=== PATIENT | male | born 1940 | race Caucasian/White ===

== ENCOUNTER 2025-05-15 06:41 | Day surgery (SDC) | payer MEDICARE, OTHER ==
[~2025-05-15] VITALS: Ht 182.9 cm; Wt 94.3 kg
[2025-05-15] VITALS (11 sets, daily range): BP systolic 122–145; BP diastolic 52–77; PULSE 63–78; RESP 14–20; TEMP 98.1; O2SAT 95–96
[2025-05-15] MEDS ORDERED: GLIP5TAB23 PO (07:21)
[2025-05-15] MEDS ORDERED: NITR0.4T48 (07:21)
[2025-05-15] MEDS ORDERED: METO50TA16 PO (07:21)
[2025-05-15] MEDS ORDERED: EZET10TA48 PO (07:21)
[2025-05-15] MEDS ORDERED: CITA-178 PO (07:21)
[2025-05-15] MEDS ORDERED: CLOP75TA34 PO (07:21)
[2025-05-15] MEDS ORDERED: ATOR-2 PO (07:22)
[2025-05-15] MEDS ORDERED: OMEP20CA16 PO (07:22)
[2025-05-15] MEDS ORDERED: TAMSULOSIN (07:22)
[2025-05-15] MEDS ORDERED: INSU100I31 SQ (07:23)
[2025-05-15] MEDS ORDERED: EMPA25TA PO (07:23)
[2025-05-15] MEDS ORDERED: TEST200V33 IM (07:24)
[2025-05-15] MEDS ORDERED: b12 injection (07:26)
[2025-05-15] MEDS ORDERED: VIT1CAPS9 PO (07:27)
[2025-05-15] MEDS ORDERED: CHOL500044 PO (07:28)
[2025-05-15] MEDS ORDERED: OMEG1CAP46 PO (07:28)
[2025-05-15 07:39] LABS: MEAN PLATELET VOLUME 7.7 FL (7.4-10.4); RED CELL DISTRIBUTION WIDTH 16.0 % (11.5-14.5)
[2025-05-15 07:46] LABS: CREATININE 1.42 MG/DL (0.60-1.10); TOTAL CARBON DIOXIDE 30.7 MMOL/L (24-32); eCRCL 43 ML/MIN; eGFR 47 ML/MIN
[2025-05-15 07:49] LABS: INR 1.1 INR
[2025-05-15] MEDS: sodium bicarbonate 1meq/ml syr 150 ML in dextrose 5%-water 1,000 ML IV ONE (08:15)
[2025-05-15] MEDS ORDERED: verapamil 2.5 mg/ml inj IV ONE (08:50)
[2025-05-15] MEDS ORDERED: LIDOcaine 1% (10mg/ml) 2ml vial ONE (08:50)
[2025-05-15] MEDS ORDERED: heparin 1,000unit/ml 10ml vial 10 ML ONE (08:51)
[2025-05-15] MEDS ORDERED: midazolam 1 mg/ML 2ml injection ONE ×2 (08:51→09:58)
[2025-05-15] MEDS ORDERED: fentaNYL/PF 50MCG/1 ML 2ML syringe ONE (08:51)
[2025-05-15] MEDS ORDERED: iohexol 350 MG/ML 50ML vial IV ONE (08:51)
[2025-05-15] MEDS ORDERED: nitroGLYCERIN 500mcg/5mL D5W 5 ML IV ONE (08:54)
--- NOTE | 2025-05-15 10:55 | ELECTROCARDIOGRAPH REPORT ---
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 GRAEME Garcia Measurements Intervals [place] Rate: 68 P: 42 SD: 210 QRS: -44 QRSD: 118 T: 27 QT: 386 QTc: 411 Interpretive Statements Sinus rhythm Incomplete left bundle branch block Inferior infarct, old Borderline ST elevation, anterior leads Electronically Signed On 05-16-2025 13:05:[address] GRAEME Garcia Please click the below link to view image of tracing.
[2025-05-15] MEDS ORDERED: clopidogrel 300mg tablet ONE (11:10)
[2025-05-15] MEDS ORDERED: protamine sulfate 10mg/ml inj. ONE (11:17)
--- NOTE | 2025-05-15 12:36 | CARDIOLOGY REPORT ---
DATE OF SERVICE: 05/15/2025 DICTATING PHYSICIAN: ARIANA SANON DO CARDIAC CATHETERIZATION REPORT REFERRING PHYSICIAN: Carlitos Ventura MD. CLINICAL HISTORY: This 85-year-old man has had occasional chest pains in the recent past. He has an extensive medical history that includes at least moderate aortic stenosis, hypertension, hypercholesterolemia, diabetes, and there is a prior history of renal artery stenting. PROCEDURES PERFORMED: Right heart catheterization, left heart catheterization, left ventriculography, selective coronary arteriography, Instantaneous wave free ratio (IFR), PTCA/stent placement (mid LAD), 90 minutes conscious sedation supervision. DESCRIPTION OF PROCEDURE: The patient was sedated with fentanyl. He was then prepared and draped in the usual manner. The area surrounding the right radial artery was infiltrated with 1% lidocaine using a micropuncture set and a Seldinger technique. A 6-Stateless sheath was placed in the radial artery. 200 mcg of nitroglycerin and 2.5 mg of verapamil were directly injected into the radial artery. I pre-placed 18-gauge Angiocath in the right cephalic arm vein was then used to place a 6-Stateless sheath. 5,000 units of heparin were then given. Right heart catheterization was performed using a 6-Stateless [place] Kiersten catheter. Cardiac output was determined by thermal dilution technique. Left heart catheterization and left ventriculography were performed with a double lumen Garrochales catheter. Simultaneous pressure recordings were obtained in the left ventricle and aorta for purposes of assessing the aortic valve. Coronary arteriography was performed using a 6-Stateless Kimney catheter. PTCA/STENT PLACEMENT: The patient was given an additional 5,000 units of heparin. The right coronary was engaged with a 6-Stateless side-hold XB-RCA guidingcatheter. After appropriate preparation and equalization, a pressure wire was passed across a moderate lesion in the mid right coronary. The IFR ratio was 0.89. Although the ratio was equivocal, a decision was made to proceed to stenting because of recent chest pains.Using the retained pressure wire, a 3.5 x 15 mm Xience drug-eluting stent was positioned across the stenosis and deployed at a maximum of 18 atmospheres. After test injections demonstrated stability of the treated area, final arteriography was performed. The arterial sheath was removed and a Vasc band was applied. Direct pressure was applied to the cubital cephalic vein. RESULTS: The mean right atrial pressure was 8 mmHg. Pulmonary arterial pressure was 33/11 mmHg. Mean pulmonary capillary wedge pressure was 11 mmHg. Left ventricular end-diastolic pressure was 14 mmHg. There was a 39 mmHg peak gradient across the aortic valve. Cardiac output by thermal dilution technique was 6.53 L/min. Using the short-form calculation, the aortic valve area was determined to be 1.04 cm2. LEFT VENTRICULOGRAM: The left ventriculogram was technically satisfactory. The ejection fraction was estimated to be about 60%. CORONARY ARTERIOGRAPHY: The coronary arteriograms were technically satisfactory. The patient had a right dominant system. RIGHT CORONARY ARTERY: The right coronary artery was a large main stem vessel. There was a large caliber moderately long posterior descending branch and one small posterolateral branch. Just after the takeoff of the first major acute marginal branch, the right coronary appeared to be narrowed by about 60-70%. There was also a similar 60-70% on the distal end of the posterior descending branch, but it was in an area small enough that stenting did not look to be a good choice since the vessel size in this location was estimated to be no greater than 2 mm. in diameter. LEFT MAIN CORONARY ARTERY: The left main was a large unobstructed vessel trifurcating the left anterior descending intermediate and circumflex coronary arteries. LEFT ANTERIOR DESCENDING CORONARY ARTERY: The LAD was a large transapical vessel. There was a very large proximal diagonal branch that contained an approximately 40% area of narrowing in the proximal half of the vessel. The main stem LAD contained no obstructive disease. INTERMEDIATE ARTERY: The intermediate artery (which actually took its origin from the very proximalmost LCX) was a medium-sized unobstructed vessel. CIRCUMFLEX CORONARY ARTERY: The circumflex was a large main stem vessel. There was a small first obtuse marginal, a small inferior obtuse marginal and a bifurcated small to medium-sized posterolateral branch. The second obtuse marginal contained luminal irregularities, but given the very small size of the vessel, it was not deemed to be important nor big enough for consideration of PCI. PTCA/STENT PLACEMENT: Following IFR evaluation, the ratio was 0.89 and following direct stenting of the mid vessel, there was no significant residual stenosis and brisk runoff distally. CONCLUSIONS: * Atherosclerotic coronary artery disease, principally manifested as a 60-70% mid right coronary with an IFR ratio of 0.89. There was also a 60-70% narrowing in the small distal end of the posterior descending branch. There was about a 40-50% narrowing in a large LAD diagonal with no other lesions of any significant size noted. * Successful direct stenting of the mid right coronary. * Severe aortic stenosis with a calculated valve area of 1.04 cm2. There was a 39 mmHg peak gradient across the valve. Cardiac output was 6.53 liters per minute. * Left ventricular function appears to be good. The estimated ejection fraction was 60%. RECOMMENDATIONS: Consideration of TAVR. ARIANA SANON DO TID: [id number] RECEIPT: [id number] LOYDA/DANILO MTDD
[2025-05-15] MEDS ORDERED: ASPI-1265 PO (13:54)
== END 2025-05-15 15:05 | disposition home or self-care (01) ==
LOC: SSTAY O 06:41
PROVIDERS: ATTEND Internal Medicine Cardiovascular Disease
DX: I25.10 Atherosclerotic heart disease of native coronary artery without angina pectoris (principal); I44.7 Left bundle-branch block, unspecified; I25.2 Old myocardial infarction; I25.84 Coronary atherosclerosis due to calcified coronary lesion; I35.0 Nonrheumatic aortic (valve) stenosis; I10 Essential (primary) hypertension; E78.5 Hyperlipidemia, unspecified; E11.9 Type 2 diabetes mellitus without complications; G47.30 Sleep apnea, unspecified; Z86.73 Personal history of transient ischemic attack (TIA), and cerebral infarction without residual deficits
CPT/HCPCS: 36415; 80048; 82948; 83735; 85025; 85610; 93005; 93460; 93571; 99152; 99153; A6258; A6402; C1751; C1769; C1874; C1887; C1894; C9600; J1644; J2003; J2250; J2720; J3010; J3490; J7030; J7070; Q0163; Q9967; Z7610; 93572

== ENCOUNTER 2025-06-23 08:47 | Outpatient (CLI) | payer MEDICARE, OTHER ==
[~2025-06-23 08:47] MED LIST: ASPI-1265 PO; ATOR-2 PO; CHOL500044 PO; CITA-178 PO; CLOP75TA34 PO; EMPA25TA PO; EZET10TA48 PO; GLIP5TAB23 PO; INSU100I31 SQ; IODIXANOL 320 MG/ML INFUS..BTL 100ML IV ONE; METO50TA16 PO; NITR0.4T48; OMEG1CAP46 PO; OMEP20CA16 PO; TAMSULOSIN; TEST200V33 IM; VIT1CAPS9 PO; b12 injection
[2025-06-23 09:19] LABS: MEAN PLATELET VOLUME 7.4 FL (7.4-10.4); RED CELL DISTRIBUTION WIDTH 15.9 % (11.5-14.5)
[2025-06-23 09:31] LABS: APTT 26 SECONDS (22-32); INR 1.1 INR
[2025-06-23 09:40] LABS: CREATININE 1.54 MG/DL (0.60-1.10); PRO BRAIN NATRIURETIC PEPTIDE 255 PG/ML (0-450); TOTAL CARBON DIOXIDE 28.4 MMOL/L (24-32); eGFR 43 ML/MIN
--- NOTE | 2025-06-23 12:02 | RADIOLOGY REPORT ---
DI CHEST,TWO VIEWS, CATH HEART CATH W/WO STENT CLINICAL HISTORY: TAVR COMPARISON: None TECHNIQUE: Frontal and lateral view of the chest was obtained FINDINGS: Lines and Tubes: None Lungs: No focal consolidation. Pleura: No effusion. No pneumothorax. Cardiomediastinal contours: Unremarkable Bones: No acute osseous abnormality. 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
--- NOTE | 2025-06-23 13:42 | VASCULAR REPORT ---
Carotid Duplex Date: 06/23/2025 10:29 AM Clinical History: Preop Comparison: None Technique: Duplex Doppler evaluation of the extracranial carotid and vertebral arteries including color Doppler and spectral/pulsed waveform analysis was performed. Doppler Spectral Velocity Analysis Right Left pCCA 132/18 cm/s pCCA 108/15 cm/s dCCA 114/11 cm/s dCCA 98/19 cm/s ECA 159/ cm/s ECA 248/ cm/s pICA 105/22 cm/s pICA 87/11 cm/s Roland 115/22 cm/s Roland 65/15 cm/s dICA 95/24 cm/s dICA 85/16 cm/s Vert. 60/7 cm/s Vert. 57/11 cm/s Subcl 160/ cm/s Subcl. 199/ cm/s ICA/CCA 1.00 ICA/CCA 0.89 CONCLUSION Very technically difficult exam due to poor visualization and pts labored breathing. Unable to charactarize plaque within the carotid arteries bilaterally due to poor visualization. Unable to visualize carotid stent. <50% stenosis detected in the internal carotid arteries bilaterally. >50% stenosis detected in the left external carotid artery. <50% stenosis detected in the right external carotid artery and common carotid arteries bilaterally. bilaterally. Antegrade flow noted within the vertebral arteries bilaterally. Multiphasic waveforms noted in the subclavian arteries Signed byReference: Radiology 2003; 229:340-346
--- NOTE | 2025-06-24 19:14 | CARDIOLOGY REPORT ---
APPROVED REPORT EXAM: Comprehensive 2D, Doppler, and color-flow Echocardiogram. Patient Location: OUT-PATIENT Blood Pressure: 111/52 mmHg Heart Rate: 67 bpm Rhythm: SINUS Indications AORTIC STENOSIS AORTIC STENT 2022 CAROTID STENT 2021 [place] Up: Jorden Ventura MD Previous echo: 12/31/21 MMCR (EF 60-65%, MARK 1.30 cmsq, pkV 2.67, grad 29 / 18 mmHg, LVOT 1.99, mMR, Braydon, mTR) 2D Dimensions RVDd 4.6 cm IVSd 1.1 (0.7-1.1cm) LVDd 4.6 cm PWd 1.1 (0.7-1.1cm) IVSs 1.4 (0.8-1.2cm) LVDs 3.3 (2.5-4.0cm) PWs 1.5 (0.8-1.2cm) LVOT Diameter 2.00 (1.8-2.4cm) LVEF(%) 55.3 (>50%) FS (%) 28.7 % SV 54.8 ml M-Mode Dimensions Left Atrium(MM) 4.48 (2.5-4.0cm) Aortic Root 2.17 (2.2-3.7cm) Aortic Valve AoV Peak Sami. 410.0 cm/s AoV VTI 98.0 cm AO Peak GR. 67.2 mmHg AO Mean GR. 42 mmHg LVOT VTI 29.54 cm LVOT Peak Sami. 121.8 cm/s MARK (VMAX) 0.93 cm2 MARK (VTI) 0.95 cm2 Mitral Valve MV E Velocity 136.2 cm/s MV Peak Gr. 12 mmHg MV DECEL TIME 350 ms MV A Velocity 162.5 cm/s MV Mean Gr. 5 mmHg MV PHT 69 ms E/A Ratio 0.8 MVA (PHT) 3.21 cm2 MV VMax 172.0 cm/s MV VMean 104.6 cm/s MVA VTI 1.88 cm2 MV VTI 49.3 cm TDI E/Medial E' 34.0 Tricuspid Valve TR P. Velocity 282 cm/s RAP ESTIMATE 10 mmHg TR Peak Gr. 32 mmHg RVSP 42 mmHg Pulmonary Vein S2 Velocity 70.66 cm/s PVa Duration 97 msec LEFT VENTRICLE Normal LV size and wall thickness. Overall systolic function is normal. LVEF is 55-60%. RIGHT VENTRICLE RV is moderately dilated with normal systolic function. RVSP is estimated at 42 mmHg. ATRIA Left atrium is moderately dilated. AORTIC VALVE Probably trileaflet AV appears heavily calcified with significant stenosis demonstrated by reduced excursion and increased transvalvular and ascending aorta turbulance. MARK: 0.95 cmsq; Pkv: 4.10 m/sec; Gradients: 67 / 42 mmHG. Mild insufficiency. MITRAL VALVE Moderate MV apparatus calcification with moderate stenosis. MVA: 1.88 cmsq; Pkv: 1.72 m/sec; Gradients: 12 / 5 mmHG. Mild regurgitation. TRICUSPID VALVE TV appears structurally normal with trace regurgitation. PULMONIC VALVE Normal PV without stenosis, physiologic insufficiency. GREAT VESSELS Aortic root is normal in size. PERICARDIUM Normal pericardium. No effusion. Other Information Study Quality: Adequate Conclusion Normal LV size and wall thickness. Overall systolic function is normal. LVEF is 55-60%. RV is moderately dilated with normal systolic function. RVSP is estimated at 42 mmHg. Left atrium is moderately dilated. Probably trileaflet AV appears heavily calcified with significant stenosis demonstrated by reduced excursion and increased transvalvular and ascending aorta turbulance. MARK: 0.95 cmsq; Pkv: 4.10 m/sec; Gradients: 67 / 42 mmHG. Mild insufficiency. Moderate MV apparatus calcification with moderate stenosis. MVA: 1.88 cmsq; Pkv: 1.72 m/sec; Gradients: 12 / 5 mmHG. Mild regurgitation. TV appears structurally normal with trace regurgitation. Normal pericardium. No effusion.
== END 2025-06-23 23:59 | disposition home or self-care (01) ==
LOC: RAD 08:47
PROVIDERS: ATTEND Internal Medicine Cardiovascular Disease
DX: Z01.818 Encounter for other preprocedural examination (principal); I08.8 Other rheumatic multiple valve diseases; I35.0 Nonrheumatic aortic (valve) stenosis; R06.02 Shortness of breath; I65.29 Occlusion and stenosis of unspecified carotid artery
CPT/HCPCS: 36415; 71046; 71275; 74174; 75572; 80053; 83880; 85025; 85610; 85730; 93306; 93880; Q9967

== ENCOUNTER 2025-07-11 09:34 | Emergency (ER) | payer MEDICARE, OTHER ==
[~2025-07-11] VITALS: Ht 182.9 cm; Wt 92.7 kg
[~2025-07-11 09:34] MED LIST changes: -IODIXANOL 320 MG/ML INFUS..BTL 100ML IV ONE
[2025-07-11 09:36] VITALS: TEMP 98.8
--- NOTE | 2025-07-11 10:06 | Physician Documentation ---
History of Present Illness ~ Chief Complaint: Blood in Urine Stated Complaint: BLOOD IN URINE Time Seen by MD: 09:57 Primary Medical Doctor: Dr. Ventura HPI Very pleasant 85-year-old male presents to the ED with an episode of hematuria'. He has no other medical complaints has no pain. Concerns that he has having aortic valve replacement on the . Patient denies any history of kidney disease but does report ongoing type 2 diabetes management Day of Onset: Jul 11, 2025 Medication Reconciliation Allergies: Coded Allergies: Penicillins (Verified Allergy, Unknown, 07/11/25) Scheduled Aspirin (Aspirin), 1 TAB PO DAILY Atorvastatin Calcium (Atorvastatin Calcium), 0.5 TAB PO DAILY, (Reported) Cholecalciferol (Vitamin D3) (Vitamin D3), 1 TAB PO DAILY, (Reported) Citalopram Hydrobromide* (Celexa*), 1 TAB PO DAILY, (Reported) Clopidogrel Bisulfate (Clopidogrel), 1 TAB PO DAILY, (Reported) Empagliflozin (Jardiance), 1 TAB PO DAILY, (Reported) Ezetimibe (Ezetimibe), 1 TAB PO DAILY, (Reported) Glipizide (Glipizide), 1 TAB PO BID, (Reported) Insulin Glargine,Hum.rec.anlog (Basaglar Kwikpen U-100), 20 UNITS SQ BID, (Reported) Metoprolol Tartrate (Metoprolol Tartrate), 0.5 TAB PO BID, (Reported) [place]-3 Fatty Acids/Fish Oil ([place] 3 1,000 mg Softgel), 1 CAP PO Q8H, (Reported) Omeprazole (Omeprazole), 1 CAP PO DAILY, (Reported) Testosterone Cypionate (TESTOSTERONE CYPIONATE 200mg/ml 10ml vial), 1 ML IM Q2W, (Reported) Vit A/Vit C/Vit E/Zinc/Copper (Preservision Areds Softgel), 1 CAP PO Q12H, (Reported) Miscellaneous Medications Nitroglycerin (Nitroglycerin), (Reported) [Tamsulosin], (Reported) [b12 injection], (Reported) Review of Systems All Other Systems at this time: Reviewed and Negative ROS As stated above in the HPI, otherwise all systems are reviewed and negative. Physical Exam Vital Signs: Temperature: 98.8, Heart Rate: 66, Respiratory Rate: 21, BP: 144/55, Pulse Oximetry: 98, Weight: 92.700 Oxygen Flow Rate: 0 Physical Exam General: Alert, no apparent distress. Respiratory: Lungs clear, no respiratory distress. Cardiovascular: Regular rate and rhythm, no murmurs. Gastrointestinal: Soft, nontender, nondistended. Bowels sounds present. Neurologic: Oriented x4. Psychiatric: Normal mood and affect. Skin: Normal color, warm and dry. No edema, no ecchymosis. 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 Cult Urine + [place] [address] (07/11/25 10:37) Completed Orders - ADRIEN PEGUERO MECHANIC/WELDER Cbc/Diff (07/11/25 09:58) BMP (07/11/25 09:58) Lipase (07/11/25 09:58) CMP (07/11/25 09:58) Ua W/Microscopic, Cult If Ind (07/11/25 10:20) Vital Signs 07/11/25 07/11/25 07/11/25 09:36 09:53 10:32 Temp 98.8 Pulse 66 61 Resp 18 21 12 B/P (MAP) 144/55 137/59 (85) Pulse Ox 98 94 O2 Flow Rate 0 0 Laboratory Tests Test 07/11/25 10:06 07/11/25 10:08 07/11/25 10:20 Glucometer 131 H White Blood Count 7.2 Red Blood Count 4.75 Hemoglobin 13.8 L Hematocrit 41.7 L Mean Corpuscular Volume 87.8 Mean Corpuscular Hemoglobin 29.1 Mean Corpuscular Hemoglobin Concent 33.1 Red Cell Distribution Width 14.5 Platelet Count 184 Mean Platelet Volume 8.1 Neutrophils (%) (Auto) 62.2 Lymphocytes (%) (Auto) 25.2 Monocytes (%) (Auto) 7.0 Eosinophils (%) (Auto) 5.0 Basophils (%) (Auto) 0.6 Neutrophils # (Auto) 4.5 Lymphocytes # (Auto) 1.8 Monocytes # (Auto) 0.5 Eosinophils # (Auto) 0.4 Basophils # (Auto) 0.0 CBC Comment Sodium Level 144 Potassium Level 5.2 H Chloride Level 106 Carbon Dioxide Level 33.2 H Anion Gap 5 L Blood Urea Nitrogen 28 H Creatinine 1.32 H Estimated GFR/1.73 m2 52 BUN/Creatinine Ratio 21.2 H Glucose Level 126 H Calcium Level 9.2 Total Bilirubin 0.5 Aspartate Amino Transf (AST/SGOT) 18 Alanine Aminotransferase (ALT/SGPT) 38 Alkaline Phosphatase 112 Total Protein 7.0 Albumin 3.5 Globulin 3.5 Albumin/Globulin Ratio 1.0 L Lipase 32 Chemistry Comments Urine Specimen Description Urinal Urine Color Red Urine Clarity Cloudy Urine pH 6.0 Urine Specific [place] 1.020 Urine Protein 30 H Urine Glucose (UA) >=1000 H Urine Ketones Trace H Urine Occult Blood Large H Urine Nitrite Negative Urine Bilirubin Negative Urine Urobilinogen 1.0 Urine Leukocyte Esterase Negative Urine RBC Tntc Urine WBC 10-20 H Urine Squamous Epithelial Cells None seen Urine Bacteria Few Urine Mucus None seen Urine Culture Indicated Indicated Volume Urine Centrifuged 10 ml Urine Comment Medical Decision Making Findings Reviewing patient's previous visits compared his laboratory values to his today. There is notable decreased kidney function throughout his history here. Patient was not aware that he had any kidney dysfunction I explained to him that type 2 diabetes has a direct correlation with kidney damage. Verbalized understanding at this time I do not see any reason to pursue any further evaluation. I suspect hematuria may be caused by worsening kidney function and damage. However I do not see any reason why he would not be able to proceed with his aortic valve replacement. At this time I am going to discharge him for outpatient therapy Urinary Diff Dx:Considerations: Include: AAA, Aortic dissection, Appendicitis, Appendicitis train, Bowel obstruction, Bladder outlet obstruc., Cholelithiasis, Choleangitis, Cholecystitis, DJD, Epididymitis, Hepatitis, HNP, Impaction, Musculoskeletal pain, Pancreatitis, Postoperative Comp., Prostatitis, Pyelonephritis, Renal failure, Renal infarction, Strain, Urolithiasis, Urinary Obstruction, Urethritis, Urinary retention, UTI, Other Departure Disposition: HOME / SELF CARE / HOMELESS Impression: Primary Impression: Kidney failure Additional Impressions: Diabetes mellitus Hematuria Discharge Instructions: Chronic Kidney Disease, Adult, Kmaw-[id number], Hematuria, Adult, Type 2 Diabetes Mellitus, Diagnosis, Adult, [id number]-Mshr Referrals: NO PRIMARY CARE PROVIDER (PCP) Education Educated: Patient Educated regarding: diagnosis Signature Scribe Signature: g Attestation: Scribed for Adrien Pegureo Clamp Operator by Adrien Todd NP . 07/11/25 10:06 ADRIEN PEGUERO NP Jul 11, 2025 10:06
[2025-07-11 10:25] LABS: MEAN PLATELET VOLUME 8.1 FL (7.4-10.4); RED CELL DISTRIBUTION WIDTH 14.5 % (11.5-14.5)
[2025-07-11 10:33] LABS: LEUKOCYTE ESTERASE ,URINE NEGATIVE (Neg); OCCULT BLOOD,URINE LARGE (Neg)
[2025-07-11 10:36] LABS: UA COLLECTION TYPE URINAL
[2025-07-11 10:37] LABS: MUCUS STRANDS NONE SEEN /LPF (Neg); NITRITES, URINE NEGATIVE (Neg); SQUAMOUS EPITHELIAL CELL,UR NONE SEEN /LPF (FEW)
[2025-07-11 10:45] LABS: CREATININE 1.32 MG/DL (0.60-1.10); TOTAL CARBON DIOXIDE 33.2 MMOL/L (24-32); eCRCL 46 ML/MIN; eGFR 52 ML/MIN
[2025-07-11 11:50] VITALS: BP 136/79; PULSE 61; RESP 17; O2SAT 95
== END 2025-07-11 11:56 | disposition home or self-care (01) ==
LOC: ER 09:35
DX: N19 Unspecified kidney failure (principal); E11.9 Type 2 diabetes mellitus without complications; R31.9 Hematuria, unspecified; Z88.0 Allergy status to penicillin; Z79.82 Long term (current) use of aspirin
CPT/HCPCS: 36415; 80053; 81001; 82948; 83690; 85025; 87088; 99283

== ENCOUNTER 2025-07-23 07:26 | Inpatient (IN) | payer MEDICARE, OTHER ==
[2025-07-16 16:11] LABS: MEAN PLATELET VOLUME 8.0 FL (7.4-10.4); PRE OP HEMATOCRIT 40.6 % (42.0-52.0); PRE OP HEMOGLOBIN 13.7 g/dL (14.0-17.9); PRE OP PLATELET COUNT 176 X10'3 (140-440); PRE OP WHITE BLOOD COUNT 6.8 10'3 (4.8-10.8); RED CELL DISTRIBUTION WIDTH 14.9 % (11.5-14.5)
--- NOTE | 2025-07-16 16:13 | ELECTROCARDIOGRAPH REPORT ---
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 Abhay Malik Measurements Intervals [place] Rate: 59 P: 80 WV: 216 QRS: -46 QRSD: 123 T: 61 QT: 450 QTc: 446 Interpretive Statements Sinus bradycardia Borderline prolonged WV interval Left bundle branch block Electronically Signed On 07-20-2025 7:06:[address] Abhay Malik Please click the below link to view image of tracing.
[2025-07-16 16:27] LABS: PRE OP INR 1.1 INR; PRE OP PARTIAL THROMB. TIME 25.0 SECONDS (22-32); PRE OP PROTIME 10.8 SECONDS (9.0-12.0)
[2025-07-16 16:37] LABS: CREATININE 1.47 MG/DL (0.60-1.10); PRE OP ALT 41 U/L (30-65); PRE OP ANION GAP 5 (8-16); PRE OP AST 20 U/L (10-37); PRE OP BILIRUB, TOTAL 0.5 MG/DL (0.0-1.0); PRE OP POTASSIUM 5.0 MMOL/L (3.4-5.1); PRE OP SODIUM 140 MMOL/L (135-145); PRO BRAIN NATRIURETIC PEPTIDE 253 PG/ML (0-450); TOTAL CARBON DIOXIDE 30.7 MMOL/L (24-32); eGFR 46 ML/MIN
[2025-07-16 16:50] LABS: PRE OP GLUCOSE 220 MG/DL (70-104)
--- NOTE | 2025-07-16 18:48 | RADIOLOGY REPORT ---
CHEST RADIOGRAPH Indication: PREOP Technique: Frontal and lateral view of the chest was obtained Comparison: DI CHEST,TWO VIEWS on DOS: 06/23/25 FINDINGS: Lines and Tubes: Shunt catheter overlies the right chest. Lungs: Clear Pleura: No effusion. No pneumothorax. Cardiomediastinal contours: Unremarkable Bones: Unremarkable IMPRESSION: No evidence of acute disease.
[2025-07-22] MEDS: DOCUMENT DATE & TIME OF BETA-BLOCKER PO ONE (20:00)
[~2025-07-23] VITALS: Ht 182.9 cm; Wt 91.0 kg
[2025-07-23] VITALS (22 sets, daily range): BP systolic 106–171; BP diastolic 43–75; PULSE 68–87; RESP 13–21; TEMP 97.8–98.1; O2SAT 93–98
[~2025-07-23 07:26] MED LIST changes: -ASPI-1265 PO; +ASPI81TA52 PO; -ATOR-2 PO; +ATOR40TA71 PO; -EZET10TA48 PO; +EZET10TA80 PO; +MECO10005 PO; -NITR0.4T48; +TAMS-55 PO; -TAMSULOSIN; -TEST200V33 IM; +TETR-59 PO; -b12 injection; +ondansetron/PF 4mg/2ml inj IV PRN; +ringers solution, lacted 1,000 ML IV SCH
[2025-07-23] MEDS ORDERED: protamine sulfate 10mg/ml inj. ONE ×2 (07:38→07:43)
[2025-07-23] MEDS: nitroPRUSSIDE (NIPRIDE) (200MCG/ML) 100ML Drip IV SCH (08:09)
[2025-07-23] MEDS: VANCOMYCIN/H2O 1.5g/300mL PB 300 ML IV ONE (08:10)
[2025-07-23] MEDS: phenylephrine inj 50 MG in normal saline 250ml IV solN IV SCH (08:10)
[2025-07-23] MEDS ORDERED: heparin 1,000 UNITS/NS 500ml 1,500 ML ONE (09:46)
[2025-07-23] MEDS ORDERED: LIDOcaine 1% 30ml preserv. free vial ONE (09:46)
[2025-07-23] MEDS ORDERED: fentaNYL/PF 50MCG/1 ML 2ML syringe ONE (10:38)
[2025-07-23] MEDS ORDERED: midazolam 1 mg/ML 2ml injection ONE (10:39)
[2025-07-23] MEDS ORDERED: LIDOcaine 1%/PF 5ML 10 MG/ML VIAL ONE ×2 (10:46→11:13)
[2025-07-23] MEDS ORDERED: propofol inj 20 ML IV ONE (10:46)
[2025-07-23] MEDS ORDERED: heparin 1,000unit/ml 10ml vial 10 ML ONE (10:53)
[2025-07-23] MEDS ORDERED: docusate sod 100mg capsule PO PRN (11:55)
[2025-07-23] MEDS ORDERED: ondansetron/PF 4mg/2ml inj IV PRN (11:55)
[2025-07-23] MEDS ORDERED: magnesium sulf-water 2g/50mL 50 ML IV PRN (11:55)
[2025-07-23] MEDS ORDERED: HYDROcodone/acetaminophen 5mg/325mg tablet PO PRN (11:55)
[2025-07-23] MEDS ORDERED: potassium Cl 20 mEq SR tablet PO PRN (11:55)
[2025-07-23] MEDS ORDERED: dextrose 50%-water 50ml dispensing syringe IV PRN ×2 (11:55)
[2025-07-23] MEDS ORDERED: DEXTROSE 15 GM of carb/4 tabs (each vial/BOTTLE has 4 tablets) PO PRN ×2 (11:55)
[2025-07-23] MEDS ORDERED: potassium CL 10mEq/100ml bag 100 ML IV PRN (11:55)
[2025-07-23] MEDS ORDERED: potassium Cl 40MEQ/1/2NS 520ml 520 ML IV PRN (11:55)
[2025-07-23] MEDS ORDERED: potassium Cl 20mEq/100mL bag 100 ML IV PRN (11:55)
[2025-07-23] MEDS ORDERED: pantoprazole 40mg Tablet.DR PO PRN (11:55)
[2025-07-23] MEDS ORDERED: ALPRAZolam 0.25mg tablet PO PRN (11:55)
[2025-07-23] MEDS ORDERED: magnesium sulf-water 4G/100mL 100 ML IV PRN (11:55)
[2025-07-23] MEDS ORDERED: labetalol 20mg/4ml (5mg/ml) syringe IV PRN (11:55)
[2025-07-23] MEDS ORDERED: potassium Cl 40MEQ/270ML bag 250 ML IV PRN (11:55)
[2025-07-23] MEDS ORDERED: glucagon, human recombinant 1mg kit SUBCUT PRN (11:55)
--- NOTE | 2025-07-23 12:01 | OPERATIVE REPORT ---
Operative Report Providers to CC CC: Carlitos Ventura MD ~ Date of Procedure: Jul 23, 2025 Pre-Operative Diagnosis: Severe Aortic Stenosis Post-Operative Diagnosis SAME as PRE-Op Procedure Performed 1. Ultrasound-guided access, bilateral femoral vessels. 2. Bilateral femoral angiography. 3. Ascending aortography. 4. Temporary transvenous pacer to the RV apex. 5. Placement of a 26 mm Nation S3 Resilia valve. Surgeon: Jen Malik MD Manager Cardiology MD Dr. Irving Watson MD Anesthesiologist: Jacob Khanna Type of Anesthesia: General Findings: Severe Aortic Stenosis Complications None Prosthetics\Implants used: Nation 26mm S3 Resilia Estimated Blood Loss: Minimal Specimen Removed: None Description of Procedure: The patient was brought to the helper animal laboratory in a fasting state. They underwent general anesthesia. Ultrasound was used to guide access to the bilateral femoral vessels, 7-Guatemalan sheath, left femoral artery, 6-Guatemalan sheath, right femoral artery and left femoral vein. Bilateral femoral angiograms were obtained. Heparin was given to maintain an ACT over 250 seconds. Two crisscross Percloses were placed on the right. We upsized to an 8-Guatem[place] sheath. Two pigtail catheters placed in the ascending aorta. Ascending aortography done to determine the angle of deployment. Temporary transvenous pacer to the RV apex and confirmed capture. We upsized an 8-Guatemalan sheath to a 14-[place] Nation eSheath on the right. We crossed the aortic valve using a straight stiff exchange length Terumo wire supported by a 6-Guatemalan AL1 catheter. LV AO pressures were recorded. A Cook extra support wire was placed in the left ventricle. A 26mm Nation S3 Resilia valve was brought to position and under rapid right ventricular pacing was deployed. Post-procedure, there was trivial AI and no residual . Guidewires and balloons were removed at this time. The temporary pacer was removed. The 14-[place] Nation eSheath was removed and two crisscross Percloses tied with adequate hemostasis. The arterial sheath on the left was removed and a single Perclose tied. The venous sheath on the left was removed and a single Angioseal used for hemost asis. Protamine was given to reverse the effects of heparin. The patient was stable post-procedure. Good pulses in the legs and no evidence of bleeding, transferred to the PACU in stable condition. HEMODYNAMICS: Pre: LV: 180/12 mmHg LVEDP: 24mmHg Ao: 146/58, MAP 92mmHg Post: LV: 100/13 mmHg LVEDP: 20 mmHg Ao: 98/46, MAP 66mmHg RESULTS: 1. Successful placement of a 26 mm Nation S3 Resilia valve, right transfemoral approach, two perclose devices. ASA 81mg QD 2. Diabetes: Diabetic Diet, RISS 3. Hypertension: Resume if blood pressure remains stable 4. Acute on chronic diastolic heart failure. LVEDP 24mmHg 5. CAD: s/p PCI RCA Patient will be watched in the recovery area until stable, then transferred to telemetry at that time. JEN MALIK MD Jul 23, 2025 12:01
[2025-07-23] MEDS ORDERED: LIDOCAINE 2%/EPI 1:100,000 inj. Multi-dose 20 ML VIAL ONE (12:14)
--- NOTE | 2025-07-23 12:37 | ELECTROCARDIOGRAPH REPORT ---
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 Abhay Malik Measurements Intervals [place] Rate: 86 P: 82 UT: 226 QRS: -21 QRSD: 131 T: -2 QT: 371 QTc: 444 Interpretive Statements Sinus rhythm Prolonged UT interval IVCD, consider atypical LBBB Electronically Signed On 07-27-2025 7:08:[address] Abhay Malik Please click the below link to view image of tracing.
[2025-07-23] MEDS: hydrALAZINE 20mg/ml inj. IV PRN (12:46)
[2025-07-23] MEDS: INSULIN LISPRO 100 UNIT/ML INSULN.PEN MULTI-DOSE SQ SCH ×2 (14:22→14:23)
[2025-07-23] MEDS: normal saline 1000ml 1,000 ML IV SCH (14:52)
[2025-07-23] MEDS: sod chloride 0.9% 10ml flush syringe IV SCH (16:00)
--- NOTE | 2025-07-23 19:02 | CARDIOLOGY REPORT ---
APPROVED REPORT EXAM: Focused, limited intraprocedural transthoracic 2D, spectral and color flow Doppler echocardiogram during TAVR deployment. Patient Location: [facility] Blood Pressure: 149 / 68 mmHg Heart Rate: 78 bpm Rhythm: SINUS Indications SEVERE AORTIC STENOSIS 26mm Nation Jhon 3 Ultra RESILIA Bioprosthetic TAVR HYPERTENSION HDL CAD S/P PCI? Chair Pad Maker: Jorden Ventura MD / Interventionalist: Sumaya Malik MD and Emanuel Deluca MD. / Surgeon: Elizabeth Ga MD. / Device rep: Shaggy Nielsen ELS Previous echo: 06/23/25 [facility] (EF 55-60%, MARK 0.95 cmsq, pk 4.1- m/s, grad 67 / 42 mmHg, LVOT 2.00, Braydon, modMS, mild MR, trTR) LEFT VENTRICLE Normal LV size and function. Mild concentric hypertrophy. LVEF is 65-70%. RIGHT VENTRICLE RV appears moderately dilated with normal function. RVSP is estimated at 47 mmHg. ATRIA LA appears at least moderately dilated. AORTIC VALVE Trileaflet AV appears severely calcified with significant stenosis demonstrated by reduced excursion and increased transvalvular and ascending aorta turbulance. MARK: 0.85 cmsq; Pkv: 3.76 m/sec; Gradients: 57 / 34 mmHG. Trace insufficiency. POST DEPLOYMENT (LOOP: 50): 26 mm Nation Jhon 3 Ultra Resilia bioprosthetic TAVR appears well seated with normal function. Trace paravalvular leak present at 12 o'clock in TTE SAX BASE. MARK is measured at 3.4 cmsq. Peak / mean gradients of 11 / 6 mmHG. Peak velocity is measured at 1.66 m/sec. Poor Doppler angles due to supine positioning of adequate imaging windows, quantitative data must be clinically correlated. MITRAL VALVE Moderate MV annular and leaflet calcification with moderate stenosis. MVA: 1.80 cmsq; Pkv: 1.67 m/sec; Gradients: 11 / 5 mmHG. Trace regurgitation. TRICUSPID VALVE TV appears structurally normal with trace regurgitation. PULMONIC VALVE Normal PV without stenosis, physiologic insufficiency. PERICARDIUM Normal pericardium. No effusion.
[2025-07-23] MEDS: PRESERVISION AREDS PO SCH (19:20)
[2025-07-23] MEDS: OMEGA-3/DHA/EPA/FISH OIL 1 EACH CAPSULE.DR PO SCH (21:46)
[2025-07-23] MEDS: vancomycin/NS 1 GM ADD-VANTAGE 250 ML IV SCH (21:58)
[2025-07-24 06:00] VITALS: BP 129/52; PULSE 76; RESP 20; TEMP 98.1; O2SAT 95
--- NOTE | 2025-07-24 07:03 | RADIOLOGY REPORT ---
CHEST RADIOGRAPH Indication: s/p TAVR Technique: Single frontal view of the chest was obtained COMPARISON: DI CHEST,TWO VIEWS on DOS: 07/16/25, DI CHEST,TWO VIEWS on DOS: 06/23/25 FINDINGS: Lines and Tubes: Right internal jugular central venous catheter stable in position. Lungs: Clear Pleura: No effusion. No pneumothorax. Cardiomediastinal contours: Cardiomegaly. Bones: Unremarkable IMPRESSION: 1. No acute cardiopulmonary disease. 2. Cardiomegaly. 3. Right IJ catheter.
--- NOTE | 2025-07-24 07:22 | ELECTROCARDIOGRAPH REPORT ---
[facility] Test Date: 2025-07-24 Test Time: 07:21:08 Pat Name: SHEREE PRICE Department: [facility] 3S Room: [place] [address] A Gender: M Loom Winder Tender: ALDO : 1940 Requested By: JEN MALIK Order Number: [id number] Reading MD: Dr. Abhay Malik Measurements Intervals Blair Rate: 75 P: 74 AZ: 220 QRS: -43 QRSD: 125 T: 61 QT: 412 QTc: 461 Interpretive Statements Sinus rhythm Prolonged AZ interval Left bundle branch block Electronically Signed On 07-27-2025 7:10:[address] Abhay Malik Please click the below link to view image of tracing.
[2025-07-24 07:34] LABS: MEAN PLATELET VOLUME 8.4 FL (7.4-10.4); RED CELL DISTRIBUTION WIDTH 15.3 % (11.5-14.5)
[2025-07-24] MEDS: pantoprazole 40mg Tablet.DR PO SCH (07:48)
[2025-07-24] MEDS: cyanocobalamin 500mcg tablet PO SCH (07:48)
[2025-07-24] MEDS: cholecalciferol (vitamin D3) 1,000 unit (25mcg) tablet PO SCH (07:49)
[2025-07-24 08:00] VITALS: RESP 20; O2SAT 95
[2025-07-24] MEDS ORDERED: aspirin 81mg, enteric-coated 1 TAB TABLET.DR PO SCH (08:00)
[2025-07-24 08:10] LABS: CREATININE 1.63 MG/DL (0.60-1.10); PRO BRAIN NATRIURETIC PEPTIDE 619 PG/ML (0-450); TOTAL CARBON DIOXIDE 25.8 MMOL/L (24-32); eCRCL 37 ML/MIN; eGFR 41 ML/MIN
[2025-07-24 11:00] VITALS: BP 130/51; PULSE 71; RESP 20; TEMP 98.3; O2SAT 97
[2025-07-24 15:00] VITALS: BP 120/46; PULSE 71; RESP 21; TEMP 98.7; O2SAT 95
--- NOTE | 2025-07-25 05:22 | CARDIOLOGY REPORT ---
APPROVED REPORT EXAM: Limited 2D, Doppler, and color-flow Echocardiogram. Patient Location: 3027 [address] Blood Pressure: 129/52 mmHg Heart Rate: 68 bpm Rhythm: Sinus Rhythm Indications ONE DAY FOLLOW-UP TAVR 26 mm Nation Jhon 3 Ultra RESILIA Bioprosthetic TAVR Atmospheric Chemist: Jorden Ventura MD/ Interventionalist: Helena Meyer MD and Emanuel Deluca MD Previous echo [facility] EF (65-70%) ; MARK 3.4 cmsq ; Peak v 1.66 m/sec ; Grad 11/6 mmHg. 2D Dimensions RVDd 3.8 cm LVOT Diameter 2.60 (1.8-2.4cm) Aortic Valve AoV Peak Sami. 225.4 cm/s AoV VTI 50.8 cm AO Peak GR. 20.3 mmHg AO Mean GR. 10 mmHg LVOT VTI 33.33 cm LVOT Peak Sami. 145.1 cm/s MARK(VTI)/BSA 3.50 cm2/m2 MARK (VTI) 3.50 cm2 AV DI 0.66 % Mitral Valve MV Peak Gr. 8 mmHg MV PHT 64 ms MV VMax 141.7 cm/s Tricuspid Valve TR P. Velocity 292 cm/s RAP ESTIMATE 10 mmHg TR Peak Gr. 34 mmHg RVSP 44 mmHg LEFT VENTRICLE Normal LV size and function. Mild concentric hypertrophy. Overall LVEF is 65-70%. RIGHT VENTRICLE Right ventricle appears moderately dilated with normal function. Estimated PA systolic pressure is 44 mmHg. ATRIA The left atrium size appears to be normal. AORTIC VALVE 26 mm Nation Jhon 3 Ultra Resilia Bioprosthetic TAVR appears well seated with normal function. Trace perivalvular leaks located at 7 o 'clock and 12 o"clock in TTE SAX BASE. MARK is measured at 3.5 cmsq. Peak / mean gradients of 20/11 mmHG. Peak velocity is measured at 225 cm/sec. MITRAL VALVE Moderate MV annular calcification without gross stenosis. Trace regurgitation. TRICUSPID VALVE TV appears structurally normal with trace regurgitation. PULMONIC VALVE Normal PV without stenosis, physiologic insufficiency. PERICARDIUM Normal pericardium. No pericardial effusion seen. Conclusion Normal LV size and function. Mild concentric hypertrophy. Overall LVEF is 65-70%. Right ventricle appears moderately dilated with normal function. Estimated PA systolic pressure is 44 mmHg. The left atrium size appears to be normal. 26 mm Nation Jhon 3 Ultra Resilia Bioprosthetic TAVR appears well seated with normal function. Trace perivalvular leaks located at 7 o 'clock and 12 o"clock in TTE SAX BASE. MARK is measured at 3.5 cmsq. Peak / mean gradients of 20/11 mmHG. Peak velocity is measured at 225 cm/sec. Moderate MV annular calcification without gross stenosis. Trace regurgitation. TV appears structurally normal with trace regurgitation. Normal pericardium. No pericardial effusion seen.
--- NOTE | 2025-07-25 20:20 | DISCHARGE SUMMARY ---
Discharge Summary Providers to CC CC: Carlitos Ventura MD ~ Discharge Summary Admission Diagnosis: Severe Aortic Stenosis Hospital Course DATE OF ADMISSION: 07/23/2025 DATE OF DISCHARGE: 07/24/2025 Discharge Diagnosis\Comment: Severe Aortic Stenosis status post Transcatheter Aortic Valve Replacement Operations\Procedures: 1. Ultrasound-guided access, bilateral femoral vessels. 2. Bilateral femoral angiography. 3. Ascending aortography. 4. Temporary transvenous pacer to the RV apex. 5. Placement of a 26 mm Nation S3 Resilia valve. Consultants: None Complications: None Condition on DC: Stable Continued Medications: Aspirin (Aspirin EC) 81 Mg Tablet.dr 1 TAB PO DAILY for 30 Days, #30 TAB Atorvastatin Calcium (Atorvastatin Calcium) 40 Mg Tablet 1 TAB PO DAILY for 30 Days, #30 TAB 0 Refills Cholecalciferol (Vitamin D3) (Vitamin D3) 125 Mcg (5000 Unit) Tablet 1 TAB PO DAILY, TAB 0 Refills Citalopram Hydrobromide* (Celexa*) 20 Mg Tablet 1 TAB PO DAILY Clopidogrel Bisulfate (Clopidogrel) 75 Mg Tablet 1 TAB PO DAILY Ezetimibe (Ezetimibe) 10 Mg Tablet 1 TAB PO DAILY Mecobalamin (B12 Active) 1,000 Mcg Tab.chew 1 TAB PO DAILY for 30 Days, #30 TAB 0 Refills Metoprolol Tartrate (Metoprolol Tartrate) 50 Mg Tablet 0.5 TAB PO BID Jarbidge-3 Fatty Acids/Fish Oil (Jarbidge 3 1,000 mg Softgel) 300 Mg-1,000 Mg Capsule 1 CAP PO BID, CAP 0 Refills WITH MEALS Omeprazole (Omeprazole) 20 Mg Capsule.dr 1 CAP PO DAILY Tamsulosin Hcl* (Flomax*) 0.4 Mg Cap.sr.24h 1 CAP PO DAILY PRN for PROSTATE for 30 Days, #30 CAP Tetracycline Hcl (Tetracycline Hcl) 500 Mg Capsule 1 CAP PO Q12H for 14 Days, #20 CAP before food and bedtime LAST DAY 07/29/25 Vit A/Vit C/Vit E/Zinc/Copper (Preservision Areds Softgel) 4,296-226 Capsule 1 CAP PO Q12H, CAP 0 Refills Discharge Summary: 85yo man with HTN, HLD, DM, CAD(s/p PCI RCA), Severe symptomatic Aortic Stenosis admitted after Elective TAVR. Did well overnight without issues. --Cont ASA 81mg QD --Educated on Endocarditis PPx *Problems/Diagnosis: (1) Aortic stenosis Total Time Spent on D/C: Up to 30 Minutes Counseling Services Smoking & Tobacco Cessation: N/A JEN LANDEROS MD Jul 25, 2025 20:20
--- NOTE | 2025-07-26 11:16 | OPERATIVE REPORT ---
Operative Report Providers to CC CC: JEN MALIK MD; ROCIO DELUCA MD ~ Date of Procedure: Jul 23, 2025 Pre-Operative Diagnosis: Severe Aortic Stenosis Post-Operative Diagnosis SAME as PRE-Op Procedure Performed 1. Transcatheter aortic valve replacement with 26 mm Nation S3 Resilia valve model [id number], SN [id number] bovine pericardial 2. Ultrasound-guided micropuncture access to femoral vessels for sheath placement: 6 Indian sheath right femoral artery later upsized to 14 Indian E sheath, 7 Indian sheath left femoral artery, 6 Indian sheath left femoral vein 3. Bilateral femoral angiography 4. Ascending aortography 5. Temporary transvenous pacemaker to right ventricular apex placement and later removal Surgeon: Irving Ga MD, PhD FACC Crew Supervisor Interventional cardiologists: 1. Jen Malik MD 2. Rocio Deluca MD Anesthesiologist: Jacob Khanna Type of Anesthesia: General Findings: Severe aortic stenosis Complications None Prosthetics\Implants used: 26 mm Nation S3 Resilia valve Estimated Blood Loss: Minimal Specimen Removed: None Description of Procedure: The patient was brought to the laborer concrete plant, placed supine on the imaging table, and underwent general anesthesia. The patient was prepped and draped in sterile fashion. A radial arterial line was placed for continuous blood pressure monitoring. Ultrasound was used to guide access to the bilateral femoral vessels using micro puncture and modified Seldinger technique. A 7 Indian sheath was placed in the above femoral artery, and a 6 Indian sheath in the above femoral artery and vein. Bilateral femoral angiograms were obtained. Intravenous heparin was administered to maintain an ACT over 250 seconds. Two Perclose sutures were pre-placed in the working femoral artery for later closure following Esheath removal. The above working femoral artery access was upsized from a 6 Indian to an 8 Indian sheath. An angled pigtail catheter was advanced through the 7 Indian arterial sheath and parked in the right sinus of Valsalva to visualize the plane of the aortic annulus. A 2nd pigtail catheter was advanced through the 8 Indian arterial sheath into the ascending aorta. Aortography was performed to determine the final angles of deployment compared to those which had been calculated from the TAVR computed tomography images. A temporary balloon tipped transvenous pacemaker was advanced through the venous sheath to the right ventricular apex and capture was confirmed. The 8 Indian arterial sheath was upsized to the Nation E sheath through which the aortic valve was crossed using a straight stiff exchange length Terumo wire supported by a 6 Indian AL1 catheter. Left ventricular and aortic pressures were recorded. And extra support Cook wire with custom hand curling of the J-tip to match the internal dimensions of the apical left ventricle was advanced into the left ventricle. A 23 mm BAV true balloon was advanced through the aortic valve, positioned across the valve, and under rapid ventricular pacing, was inflated with concomitant root angiography to rule out any leak necessitating placement of a larger valve. This demonstrated no leak around the inflated balloon, so consequently a 23 mm valve was selected. The above-listed Nation TAVR valve with distal valve skirt confirmed was crimped onto the delivery device. The delivery device was advanced over the wire in the Esheath to the thoracic aorta where the TAVR balloon was then retracted into position inside the TAVR valve. The device was 50% retroflexed for travel through the aortic arch, and the TAVR valve positioned in the [place] aortic valve at the annulus. Right ventricular pacing at 180 beats per minute was initiated, the systolic blood pressure dropped below 50 mmHg, and the valve was deployed after full balloon inflation for 4 seconds taking care to ensure inflation pressure did not exceed 8 mmHg. Rapid balloon deflation was performed, rapid pacing discontinued, and hemodynamics recovered without incident. Transthoracic echocardiography was performed. Post procedure, there was no aortic insufficiency, no residual aortic stenosis, no paravalvular leak, and no pericardial effusion. Catheters, guidewires, and the delivery device were removed at this time. The temporary transvenous pacer was removed. The Nation Esheath was removed and the 2 pre- placed Perclose sutures were tied with adequate hemostasis. The 7 Indian arterial sheath was removed and a single Perclose suture was deployed and tied. The venous sheath was removed and a single Angio-Seal deployed for hemostasis. Protamine was given to reverse the effects of heparin. Lower extremity pulses were present bilaterally with no evidence bleeding at the vascular access sites. The patient was transferred to the PACU in stable condition. Counts repoted as correct: Yes RIVING GA MD Jul 26, 2025 11:16
== END 2025-07-24 17:54 | disposition home or self-care (01) | DRG 266 ==
LOC: PAS IN 07:26 → UNDOADMIN 07:26 → PAS IN 11:58 → PCU 3S 14:06
PROVIDERS: ADMIT Internal Medicine Cardiovascular Disease; ATTEND Internal Medicine Cardiovascular Disease
PROC: B41D1ZZ Fluoroscopy of Aorta and Bilateral Lower Extremity Arteries using Low Osmolar Contrast (ICD-10-PCS; 2025-07-23)
PROC: 02RF38Z Replacement of Aortic Valve with Zooplastic Tissue, Percutaneous Approach (ICD-10-PCS; principal; 2025-07-23 10:27)
DX: I35.0 Nonrheumatic aortic (valve) stenosis (principal); Z00.6 Encounter for examination for normal comparison and control in clinical research program; I50.33 Acute on chronic diastolic (congestive) heart failure; I25.10 Atherosclerotic heart disease of native coronary artery without angina pectoris; I11.0 Hypertensive heart disease with heart failure; E78.5 Hyperlipidemia, unspecified; E11.9 Type 2 diabetes mellitus without complications; Z98.61 Coronary angioplasty status; Z88.0 Allergy status to penicillin
CPT/HCPCS: 33361; 36415; 71045; 71046; 76937; 80053; 82948; 83036; 83735; 83880; 85025; 85347; 85610; 85730; 86885; 86900; 86901; 86920; 87081; 93005; 93308; A4615; A4618; A6258; A6449; C1756; C1760; C1769; C1894; G0378; J0360; J1644; J1815; J2003; J2250; J2371; J2704; J2720; J3010; J3373; J3490; J7030; J7040; J7050; J7120; Q9967